=== PATIENT | female | born 1955 | race Caucasian/White ===

== ENCOUNTER 2019-04-03 12:26 | Outpatient (CLI) | payer SELFPAY ==
--- NOTE | 2019-04-03 12:55 | Diagnostic Imaging Report ---
BAILEY BEAVER [facility] [address] [facility] [address] [place], [place]. [address] Report Submission Date: Apr 03, 2019 12:53:28 PM CDT Patient Study Name: SRIDEVI BLACK Date: Apr 03, 2019 12:34:44 PM CDT Modality Type: CT\SR Gender: F Description: CT BRAIN W/O CONTRAST : 53 Institution: [facility] Physician: BAILEY BEAVER Exam: CT brain without contrast. History: Injury 1 week ago. Axial images through the brain are submitted along with sagittal and coronal reformatted images. The brainstem and cerebellum are of normal attenuation. No acute hemorrhage in the posterior fossa is identified. In the supratentorial regions, no acute hemorrhage or mass effects are identified. Faint areas of diminished attenuation in the deep white matter bilaterally is noted. No extra-axial fluid collections are identified. No bony abnormalities are identified. Impression: No acute hemorrhage or mass effect is identified. Irregular areas diminished attenuation in the deep white matter is noted. This could represent small vessel disease. MRI may be beneficial to further characterize. Electronically signed on Apr 03, 2019 12:53:28 PM CDT by: Edvin HARDIN
== END 2019-04-03 12:28 ==
LOC: RAD 12:26
PROVIDERS: ATTEND Family Medicine
DX: S09.90XA Unspecified injury of head, initial encounter (principal)
CPT/HCPCS: 70450

== ENCOUNTER 2019-05-16 13:00 | Outpatient (CLI) | payer MEDICARE ==
--- NOTE | 2019-06-18 14:19 | Diagnostic Imaging Report ---
MARINA GASTELUM [facility] [address] [facility] [address] [address] Report Submission Date: May 24, 2019 11:24:04 AM CDT Patient Study Name: JOSUE CARDOSO Date: May 24, 2019 10:50:20 AM CDT Modality Type: DX Gender: F Description: ANKLE 3 VIEWS OR MORE : [birth year] Institution: [facility] Physician: MARINA GASTELUM Exam: Right ankle. History: Injury. AP, lateral and mortise view of the right ankle are submitted. A bony avulsion through the lateral malleolus is noted. Ankle mortise is adequately maintained. Soft tissue swelling over the ankle is noted. Impression: Acute bony avulsion through the lateral malleolus. Electronically signed on May 24, 2019 11:24:04 AM CDT by: Edvin HARDIN
== END 2019-05-16 13:30 ==
LOC: RAD 13:00
PROVIDERS: ATTEND Family Medicine
DX: S93.05XA Dislocation of left ankle joint, initial encounter (principal); X58.XXXA Exposure to other specified factors, initial encounter
CPT/HCPCS: 77080